=== PATIENT | male | born 1965 | race Caucasian/White ===

== ENCOUNTER 2016-05-31 10:33 | Emergency (ER) | payer OTHER ==
[~2016-05-31] VITALS: Ht 190.5 cm; Wt 98.4 kg
[~2016-05-31 10:33] MED LIST: ACYCLOVIR400 MG ORAL; ALBUTEROL SULF8.5 GM INH; AZITHROMYCIN250 MG ORAL; BACTRIM DS TAB1 EAC1 ORAL; CHERATUSSIN AC118 ML PO; IBUPROFEN600 MG ORAL; ISENTRESS400 MG ORAL; LEVAQUIN500 MG ORAL; PREDNISONE20 MG ORAL; TRUVADA 200 MG1 EAC1 ORAL; ZITHROMAX250 MG ORAL
[2016-05-31] MEDS ORDERED: BENADRYL25 MG ORAL (11:56)
[2016-05-31] MEDS ORDERED: TRIAMCINOLONE A15 G1 TP (11:56)
[2016-05-31] MEDS ORDERED: PREDNISONE20 MG ORAL (11:56)
[2016-05-31] MEDS ORDERED: Solu-MEDROL 125mg Inj IM ONE (12:00)
--- NOTE | 2016-05-31 12:05 | Emergency Room Report ---
History of Present Illness General Chief Complaint: Upper Respiratory Illness Source: Patient Present Illness HPI Patient is a 51-year-old male presenting with 3 days of nasal congestion, dry cough, and total body rash. The patient denies using any new detergents, soaps , clothing, or consuming any new foods. The patient states that the rash is itchy it does not hurt. The patient admits to using methamphetamine 4 days ago. The patient denies other symptoms including fever, chills, headache, neck pain or stiffness, shortness of breath, chest pain, numbness or tingling, swelling Allergies: Coded Allergies: Sesame Seed (Unverified Allergy, Unknown, 09/22/14) Patient History Past Medical History: see triage record Pertinent Family History: none Social History: Reports: drug use - methamphetamine Reviewed Nursing Documentation: PMH: Agreed, PSxH: Agreed Nursing Documentation-PMH Past Medical History: No History, Except For Hx Pacemaker: No - ANEMIA Hx Gastrointestinal Problems: Yes - hernia Review of Systems All Other Systems: negative except mentioned in HPI Physical Exam Vital Signs Date Time Temp Pulse Resp B/P Pulse Ox O2 Delivery O2 Flow Rate FiO2 05/31/16 11:19 98.2 84 18 125/87 98 Room Air Sp02 EP Interpretation: reviewed, normal General Appearance: no apparent distress, alert, GCS 15, non-toxic Head: normocephalic, atraumatic Eyes: bilateral eye PERRL, bilateral eye normal inspection ENT: hearing grossly normal, normal pharynx, no angioedema, normal voice, other - No tonsils Neck: full range of motion, supple/symm/no masses Respiratory: chest non-tender, lungs clear, normal breath sounds, speaking full sentences Cardiovascular #1: regular rate, rhythm, no edema Gastrointestinal: normal bowel sounds, non tender, soft, non-distended, no guarding, no rebound Rectal: deferred Genitourinary: normal inspection, no CVA tenderness Musculoskeletal: back normal, gait/station normal, normal range of motion, non- tender Neurologic: alert, oriented x3, responsive, motor strength/tone normal, sensory intact, speech normal Psychiatric: judgement/insight normal, memory normal, mood/affect normal, no suicidal/homicidal ideation Skin: normal turgor, rash - diffuse erythema with excoriations Lymphatic: no adenopathy Medical Decision Making PA Attestation Dr. Oneil is my supervising physician. Patient management was discussed with my supervising physician Diagnostic Impression: Primary Impression: Atopic dermatitis ER Course The patient is a 51-year-old male presenting with URI symptoms and full body rash Ddx considered include but not limited to insect bite, contact dermatitis, eczema, cellulitis Differential diagnosis include but not limited to pharyngitis, sinusitis, AOM, bronchitis, PNA PE: vitals WNL. No apparent distress. No TTP over maxillary or frontal sinuses. Lungs CTA bilat. No wheezing. No accessory muscle use. Heart: RRR, no abnormal heart sounds Ears: external auditory canal clear. Non erythematous. Bilat TM intact. Cone of light present bilat. No bulging of TM. No serous fluid seen. + nasal D/C no anterior cervical lymphad No exudate. Uvula midline.Oropharynx non erythematous Skin: warm and dry. Diffuse erythema with excoriations. Pt is given a shot of methylprednisone Pt will be DC'ed home with a prescription for prednisone, triaconazole, and benadryl. ER precautions given. Pt told he may need allergy testing and to stop using drugs. Last Vital Signs Date Time Temp Pulse Resp B/P Pulse Ox O2 Delivery O2 Flow Rate FiO2 05/31/16 11:19 98.2 84 18 125/87 98 Room Air Status: improved Disposition: HOME, SELF-CARE Condition: Improved Scripts Triamcinolone Acetonide (TRIAMCINOLONE ACETONIDE) 15 Gm Cream..g. 1 APPLIC TP TID, #15 GM Prov: TERZIAN,RAOUL P.A. 05/31/16 Prednisone* (PREDNISONE*) 20 Mg Tablet 20 MG ORAL DAILY, #5 TAB 0 Refills Prov: TERZIAN,RAOUL P.A. 05/31/16 Diphenhydramine Hcl* (BENADRYL*) 25 Mg Capsule 25 MG ORAL Q6H Y for Itching, #20 CAP Prov: TERZIAN,RAOUL P.A. 05/31/16 Patient Instructions: Pruritus Additional Instructions: I discussed my findings with the patient. All questions and concerns have been answered. Treatment and medication compliance have been addressed. I advised the patient that they need to follow up with PMD in 3-5 days. Return to ED if symptoms worsen, new symptoms arise, or if needed for any reason. Patient verbalized understanding of discharge instructions. RAOUL LEHMAN May 31, 2016 12:05
[2016-05-31 12:07] VITALS: BP 125/87
[2016-05-31 12:08] VITALS: BP 125/87
== END 2016-05-31 12:08 | disposition home or self-care (01) ==
LOC: EMR 12:00
DX: L20.9 Atopic dermatitis, unspecified (principal); F15.10 Other stimulant abuse, uncomplicated
CPT/HCPCS: 96372; 99284; J2930

== ENCOUNTER 2016-06-22 20:45 | Emergency (ER) | payer MEDICAID, OTHER ==
[~2016-06-22] VITALS: Ht 190.5 cm; Wt 98.4 kg
[~2016-06-22 20:45] MED LIST changes: +BENADRYL25 MG ORAL; +TRIAMCINOLONE A15 G1 TP
[2016-06-22 21:03] VITALS: BP 123/78
[2016-06-22] MEDS ORDERED: PredniSONE 20mg tab ORAL ONE (21:15)
--- NOTE | 2016-06-22 21:18 | Emergency Room Report ---
History of Present Illness General Chief Complaint: Skin Rash/Abscess Source: Patient Present Illness HPI This is a 51-year-old male with a history of HIV. He is on antiretroviral medication ready. Viral load is undetectable. He also has a history of eczema. He presents with a rash is diffuse in nature. He was here about 3 weeks ago and was treated. He said it almost completely resolved when the story was off he came back. Itchy. History of methamphetamine use a month ago. Denies any fever chills denies any nausea vomiting. No other complaint. Allergies: Coded Allergies: Sesame Seed (Unverified Allergy, Unknown, 09/22/14) Patient History Past Medical History: see triage record, old chart reviewed Past Surgical History: none Pertinent Family History: none Social History: Denies: smoking Immunizations: other Reviewed Nursing Documentation: PMH: Agreed, PSxH: Agreed Nursing Documentation-PMH Hx Pacemaker: No - ANEMIA Hx Gastrointestinal Problems: Yes - hernia Review of Systems Eye: Denies: blurred vision, eye pain ENT: Denies: ear pain, nose congestion, throat swelling Respiratory: Denies: cough, shortness of breath Cardiovascular: Denies: chest pain, palpitations Gastrointestinal: Denies: abdominal pain, diarrhea, nausea, vomiting Musculoskeletal: Denies: back pain, joint pain Skin: Reports: rash Neurological: Denies: headache, numbness Endocrine: Denies: increased thirst, increased urine Hematologic/Lymphatic: Denies: easy bruising All Other Systems: negative except mentioned in HPI Physical Exam Vital Signs Date Time Temp Pulse Resp B/P Pulse Ox O2 Delivery O2 Flow Rate FiO2 06/22/16 20:55 98.2 77 16 123/78 96 Room Air vitals normal Sp02 EP Interpretation: reviewed, normal General Appearance: well appearing, no apparent distress, alert Head: normocephalic, atraumatic Eyes: bilateral eye EOMI, bilateral eye PERRL ENT: hearing grossly normal, normal pharynx Neck: full range of motion, supple, no meningismus Respiratory: chest non-tender, lungs clear, normal breath sounds Cardiovascular #1: regular rate, rhythm, no murmur Gastrointestinal: normal bowel sounds, non tender, no mass, no organomegaly, no bruit, non-distended Musculoskeletal: back normal, gait/station normal, normal range of motion Neurologic: alert, oriented x3 Psychiatric: mood/affect normal Skin: warm/dry, rash - Diffuse atopic rash mostly in his torso. Medical Decision Making Diagnostic Impression: Primary Impression: Atopic dermatitis Qualified Codes: L20.9 - Atopic dermatitis, unspecified Additional Impression: History of amphetamine abuse ER Course Patient presents with exacerbation of his atopic dermatitis. No evidence of scabies. No evidence of never causing fasciitis. May have secondary to infection. We'll going put on antibiotics also. We'll discharge home. He said that no drug use for the last 2 months. Last Vital Signs Date Time Temp Pulse Resp B/P Pulse Ox O2 Delivery O2 Flow Rate FiO2 06/22/16 21:03 98.2 75 16 123/78 96 Room Air Status: improved Disposition: HOME, SELF-CARE Condition: Stable Scripts Prednisone* (PREDNISONE*) 20 Mg Tablet 20 MG ORAL DAILY, #14 TAB Prov: CHARLENE SMALL M.D. 06/22/16 Trimethoprim/Sulfamethoxazole 160/800* (BACTRIM DS TABLET*) 1 Each Tablet 1 TAB ORAL Q12H, #14 TAB 0 Refills Prov: CHARLENE SMALL M.D. 06/22/16 Additional Instructions: Followup with your DrMandy in 7 days. Return if symptom worsen. CHARLENE SMALL M.D. Jun 22, 2016 21:18
[2016-06-22] MEDS ORDERED: PREDNISONE20 MG ORAL (21:27)
[2016-06-22] MEDS ORDERED: BACTRIM DS TAB1 EAC1 ORAL (21:27)
[2016-06-22 21:34] VITALS: BP 123/78
== END 2016-06-22 21:45 | disposition home or self-care (01) ==
LOC: EMR 21:35
DX: L20.9 Atopic dermatitis, unspecified (principal); F15.10 Other stimulant abuse, uncomplicated
CPT/HCPCS: 99284

== ENCOUNTER 2016-06-24 21:52 | Emergency (ER) | payer OTHER ==
[~2016-06-24] VITALS: Ht 183.5 cm; Wt 74.8 kg
[2016-06-24] MEDS ORDERED: KENALOG 0.1% CR15 GM TOPIC (22:22)
--- NOTE | 2016-06-24 22:22 | Emergency Room Report ---
History of Present Illness General Chief Complaint: Skin Rash/Abscess Source: Patient Present Illness HPI Is a 51-year-old male with history of HIV. Also has a venous history of methamphetamine abuse. He presents with chief when a rash throughout his torso. I saw him 2 days ago and prescribe prednisone. Still itchy. Not better. Denies any trauma. Similar symptom in the past. No other complaint. Allergies: Coded Allergies: Sesame Seed (Unverified Allergy, Unknown, 09/22/14) Patient History Past Medical History: see triage record, old chart reviewed Past Surgical History: other Pertinent Family History: none Social History: Denies: smoking Immunizations: other Reviewed Nursing Documentation: PMH: Agreed, PSxH: Agreed Nursing Documentation-PMH Past Medical History: No History, Except For Hx Pacemaker: No - ANEMIA Hx Gastrointestinal Problems: Yes - hernia Review of Systems Eye: Denies: blurred vision, eye pain ENT: Denies: ear pain, nose congestion, throat swelling Respiratory: Denies: cough, shortness of breath Cardiovascular: Denies: chest pain, palpitations Gastrointestinal: Denies: abdominal pain, diarrhea, nausea, vomiting Musculoskeletal: Denies: back pain, joint pain Skin: Reports: rash Neurological: Denies: headache, numbness Endocrine: Denies: increased thirst, increased urine Hematologic/Lymphatic: Denies: easy bruising All Other Systems: negative except mentioned in HPI Physical Exam Vital Signs Date Time Temp Pulse Resp B/P Pulse Ox O2 Delivery O2 Flow Rate FiO2 06/24/16 22:04 97.5 79 15 125/68 98 Room Air vitals normal Sp02 EP Interpretation: reviewed, normal General Appearance: well appearing, no apparent distress, alert Head: normocephalic, atraumatic Eyes: bilateral eye EOMI, bilateral eye PERRL ENT: hearing grossly normal, normal pharynx Neck: full range of motion, supple, no meningismus Respiratory: chest non-tender, lungs clear, normal breath sounds Cardiovascular #1: regular rate, rhythm, no murmur Gastrointestinal: normal bowel sounds, non tender, no mass, no organomegaly, no bruit, non-distended Musculoskeletal: back normal, gait/station normal, normal range of motion Neurologic: alert, oriented x3 Psychiatric: mood/affect normal Skin: warm/dry, rash - diffuse rash. dry and reticular Medical Decision Making Diagnostic Impression: Primary Impression: Atopic dermatitis Qualified Codes: L20.9 - Atopic dermatitis, unspecified ER Course Patient with a rash. Unknown etiology. No evidence of meningitis with no evidence of necrotizing fasciitis. We'll discharge home. If not better will need wind farm operations manager consult. Last Vital Signs Date Time Temp Pulse Resp B/P Pulse Ox O2 Delivery O2 Flow Rate FiO2 06/24/16 22:04 97.5 79 15 125/68 98 Room Air Status: improved Disposition: HOME, SELF-CARE Condition: Stable Scripts Triamcinolone Acet (Triamcinolone Acetonide) 80 Gm Cream..g. 1 GM TOPIC BID, #80 GM Prov: CHARLENE SMALL M.D. 06/24/16 Patient Instructions: Rash Additional Instructions: Followup with your Dr. in 7 days. You may need a referral to see a wind farm operations manager. Return if symptom worsen. CHARLENE SMALL M.D. Jun 24, 2016 22:22
[2016-06-24] MEDS ORDERED: Dexamethasone 4mg/ml vial IM ONE (22:30)
[2016-06-24 22:38] VITALS: BP 119/70
[2016-06-24 22:42] VITALS: BP 119/70
== END 2016-06-24 22:42 | disposition home or self-care (01) ==
LOC: EMR 22:11
DX: L20.9 Atopic dermatitis, unspecified (principal); R21 Rash and other nonspecific skin eruption; F15.10 Other stimulant abuse, uncomplicated
CPT/HCPCS: 96372; 99283; J1100

== ENCOUNTER 2016-07-13 19:22 | Emergency (ER) | payer OTHER ==
[~2016-07-13] VITALS: Ht 190.5 cm; Wt 99.8 kg
[~2016-07-13 19:22] MED LIST changes: +KENALOG 0.1% CR15 GM TOPIC
[2016-07-13 19:38] VITALS: BP 115/76
--- NOTE | 2016-07-13 19:48 | Emergency Room Report ---
History of Present Illness General Chief Complaint: Flu Like Symptoms Source: Patient Present Illness HPI 51 Yo male presents to the ED c/o cough congestion body aches, and chills with nasal congestion and rhinorrhea x 3 days. hx of HIV, pt. 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 denies fevers, back pain, rash, abdominal pain, constipation or diarrhea. denies nausea or vomiting. pt. reports last viral load was zero and can not recall his CD4 count but states it was not low by any means. pt. states generalized fatigue, and body aches , denies specific joint pain. Denies Neck pain/stiffness, LAD, CP, Palpitations, LOC, AMS, dizziness, Changes in Vision, Sensation, paresthesias, or a sudden severe headache. Pt. states when he becomes sick he on occasion will receive steroid burst, reports very mild wheezing. states he does not have an inhaler. Pt also has a hx of eczema, and states he just ran out of his triamcinolone cream and needs a refill. Allergies: Coded Allergies: Sesame Seed (Unverified Allergy, Unknown, 07/13/16) Patient History Past Medical History: see triage record, HIV Past Surgical History: none Pertinent Family History: none Immunizations: UTD Reviewed Nursing Documentation: PMH: Agreed, PSxH: Agreed Nursing Documentation-PMH Past Medical History: No History, Except For Hx Pacemaker: No - ANEMIA Hx Gastrointestinal Problems: Yes - hernia Review of Systems All Other Systems: negative except mentioned in HPI Physical Exam Vital Signs Date Time Temp Pulse Resp B/P Pulse Ox O2 Delivery O2 Flow Rate FiO2 07/13/16 19:32 97.9 76 16 115/76 99 Room Air Sp02 EP Interpretation: reviewed, normal General Appearance: no apparent distress, alert, GCS 15, non-toxic Head: normocephalic, atraumatic Eyes: bilateral eye PERRL, bilateral eye normal inspection ENT: hearing grossly normal, normal pharynx, no angioedema, normal voice, TMs + canals normal, uvula midline, nasal congestion - clear rhinorrhea Neck: full range of motion, no meningismus, no bony tend, supple/symm/no masses Respiratory: chest non-tender, lungs clear, normal breath sounds, no respiratory distress, no accessory muscle use, speaking full sentences, wheezing - scant/faint expiratory wheeze at the very end of inspiration bilaterally, no rales or ronchi Cardiovascular #1: regular rate, rhythm, no edema, normal capillary refill Gastrointestinal: normal bowel sounds, non tender, soft, no guarding, no rebound Rectal: deferred Musculoskeletal: back normal, gait/station normal, normal range of motion, non- tender Neurologic: alert, oriented x3, responsive, motor strength/tone normal, sensory intact, speech normal Psychiatric: judgement/insight normal, memory normal, mood/affect normal Skin: normal color, warm/dry, well hydrated, rash - dry eczematous rash to the dorsum of hands, and neck. Lymphatic: no adenopathy Medical Decision Making PA Attestation Dr. Brooks is my supervising Physician whom patient management has been discussed with. Diagnostic Impression: Primary Impression: Acute viral syndrome Additional Impression: Upper respiratory infection Qualified Codes: J06.9 - Acute upper respiratory infection, unspecified; B97.89 - Other viral agents as the cause of diseases classified elsewhere ER Course Pt. presents to the ED c/o cough congestion bodyaches, fevers, chills and headaches x 3 days. hx of HIV, pt. 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 -pt also requests refill of his triamcinolone cream for his eczema. Ddx considered but are not limited to URI, pneumonia, PE, strep pharyngitis, meningitis. Vital signs: Pt. is afebrile, the remaining VS are WNL H&PE are most consistent with URI- no meningeal signs, oropharynx is not involved, no evidence of bacterial infection at this time., and medication refill. ORDERS: none required at this time, the diagnosis is clinical ED INTERVENTIONS: None required at this time. DISCHARGE: At this time pt. is stable for d/c to home. Will provide printed patient care instructions, and any necessary prescriptions. Care plan and follow up instructions have been discussed with the patient prior to discharge. Last Vital Signs Date Time Temp Pulse Resp B/P Pulse Ox O2 Delivery O2 Flow Rate FiO2 07/13/16 19:38 76 16 Room Air 07/13/16 19:38 97.9 115/76 99 Disposition: HOME, SELF-CARE Condition: Stable Scripts Triamcinolone Acet (Triamcinolone Acetonide) 15 Gm Cream..g. 1 APPLIC TP BID, #15 GM Prov: So Morales 07/13/16 Albuterol Sulfate* (ALBUTEROL SULFATE MDI*) 8.5 Gm Hfa.aer.ad 2 PUFF INH Q3H, #1 INH 0 Refills Prov: So Morales 07/13/16 Patient Instructions: Upper Respiratory Infection, Adult Additional Instructions: Take medications as directed. Follow up with PCP in 3-5 days Return sooner to ED if new symptoms occur, or current symptoms become worse. - Please note that this Emergency Department Report was dictated using [employer] technology software, occasionally this can lead to erroneous entry secondary to interpretation by the dictation equipment. So Morales Jul 13, 2016 19:48
[2016-07-13] MEDS ORDERED: ZITHROMAX250 MG ORAL (19:50)
[2016-07-13] MEDS ORDERED: KENALOG 0.5% CR15 GM TP (19:50)
[2016-07-13] MEDS ORDERED: ALBUTEROL SULF8.5 GM INH (19:50)
[2016-07-13 20:11] VITALS: BP 115/76
== END 2016-07-13 20:00 | disposition home or self-care (01) ==
LOC: EMR 19:50
DX: B34.9 Viral infection, unspecified (principal); J06.9 Acute upper respiratory infection, unspecified; Z91.018 Allergy to other foods; D64.9 Anemia, unspecified; B97.89 Other viral agents as the cause of diseases classified elsewhere; R51 Headache
CPT/HCPCS: 99284

== ENCOUNTER 2016-07-23 07:18 | Emergency (ER) | payer OTHER ==
[~2016-07-23] VITALS: Ht 190.5 cm; Wt 99.3 kg
[~2016-07-23 07:18] MED LIST changes: +KENALOG 0.5% CR15 GM TP
[2016-07-23] MEDS ORDERED: AMBIEN10 M1 ORAL (07:28)
[2016-07-23] MEDS ORDERED: Tetracaine 0.5% Opth Soln RIGHT EYE ONE (08:00)
[2016-07-23] MEDS ORDERED: Tetracaine 0.5% Opth Soln LEFT EYE ONE (08:00)
[2016-07-23] MEDS ORDERED: Fluorescein Strips BOTH EYES ONE (08:00)
[2016-07-23] MEDS ORDERED: OCUFLOX5 ML OP (08:21)
[2016-07-23] MEDS ORDERED: KEFLEX500 MG ORAL (08:21)
[2016-07-23 08:27] VITALS: BP 123/78
--- NOTE | 2016-07-23 08:28 | Emergency Room Report ---
History of Present Illness General Chief Complaint: Eye Problems Source: Patient Present Illness HPI 51YOM with left eye "irritation" and eyelid swelling for 2 days. Doesnt wear contacts. ?something irritated eye at work. Had botox injected to left side of face 2-3 days ago. Denies fever/chills. Denies purulent drainage from eye, fever/chills. No pain with extra ocular movement. Denies blurry, change in vision. Allergies: Coded Allergies: Sesame Seed (Unverified Allergy, Unknown, 07/13/16) Patient History Past Medical History: HIV Past Surgical History: none Pertinent Family History: none Social History: Denies: alcohol use, drug use, smoking Immunizations: UTD Reviewed Nursing Documentation: PMH: Agreed, PSxH: Agreed Nursing Documentation-PMH Hx Pacemaker: No - ANEMIA Hx Gastrointestinal Problems: Yes - hernia Review of Systems All Other Systems: negative except mentioned in HPI Physical Exam Vital Signs Date Time Temp Pulse Resp B/P Pulse Ox O2 Delivery O2 Flow Rate FiO2 07/23/16 07:25 98.1 77 16 120/77 95 Room Air Sp02 EP Interpretation: reviewed, normal General Appearance: normal inspection, well appearing, no apparent distress, alert, GCS 15, non-toxic Head: normocephalic, atraumatic, other - Left radu-orbital area with 1+ non pitting edema, mild erythema, swelling Eyes: bilateral eye PERRL, bilateral eye other - No corneal abrasion on i- flour stain. No FB on eversion of eyelids. No purulent drainage from eye. Diffuse upper/lower eyelid swelling. 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 Well appearing Rx Keflex, optham ocuflex PMD followup DC home Last Vital Signs Date Time Temp Pulse Resp B/P Pulse Ox O2 Delivery O2 Flow Rate FiO2 07/23/16 07:25 98.1 77 16 120/77 95 Room Air Status: improved Disposition: HOME, SELF-CARE Condition: Improved Scripts Cephalexin* (KEFLEX*) 500 Mg Capsule 500 MG ORAL Q6H for 7 Days, #28 CAP 0 Refills Prov: NEYDA ZAMORANO M.D. 07/23/16 Ofloxacin (OCUFLOX) 5 Ml Drops 2 DROP OP TID for 7 Days, #30 ML Prov: NEYDA ZAMORANO M.D. 07/23/16 Patient Instructions: Preseptal Cellulitis, Adult Additional Instructions: - Take ALL oral antibiotics as prescribed until finished - Apply topical eye drops 3x a day for 7 days - Apply CLEAN HOT towel to eyelids up to 3x a day - Follow up with primary care doctor in 2-3 days NEYDA ZAMORANO M.D. Jul 23, 2016 08:28
== END 2016-07-23 08:30 | disposition home or self-care (01) ==
LOC: EMR 07:58
DX: H57.8 Other specified disorders of eye and adnexa (principal); B20 Human immunodeficiency virus [HIV] disease; Z87.19 Personal history of other diseases of the digestive system
CPT/HCPCS: 99284

== ENCOUNTER 2016-11-19 21:11 | Emergency (ER) | payer OTHER ==
[~2016-11-19] VITALS: Ht 190.5 cm; Wt 97.5 kg
[~2016-11-19 21:11] MED LIST changes: +AMBIEN10 M1 ORAL; +KEFLEX500 MG ORAL; +OCUFLOX5 ML OP
[2016-11-19 21:38] VITALS: BP 147/92
[2016-11-19] MEDS ORDERED: DuoNeb 0.5-3(2.5)mg/3ml neb HHN ONE (21:45)
--- NOTE | 2016-11-19 21:48 | Emergency Room Report ---
History of Present Illness General Chief Complaint: General Complaint Source: Patient Present Illness HPI Patient is a 51-year-old male who presented after increased cough as well as generalized body rash. The patient having gradual onset of symptoms. Patient reports having similar symptoms in the past. The patient previously been intermittently on steroids after episodes of difficulty breathing. Patient reported having increased left-sided ankle pain. Patient states that previous fractures to that bone. He denies any recent fever. He reported having gradually worsening itchy skin rash. Allergies: Coded Allergies: Sesame Seed (Unverified Allergy, Unknown, 07/13/16) Patient History Past Medical History: see triage record Reviewed Nursing Documentation: PMH: Agreed, PSxH: Agreed Nursing Documentation-PMH Past Medical History: No History, Except For Hx Pacemaker: No - ANEMIA Hx Gastrointestinal Problems: Yes - hernia Review of Systems All Other Systems: negative except mentioned in HPI Physical Exam Vital Signs Date Time Temp Pulse Resp B/P (MAP) Pulse Ox O2 Delivery O2 Flow Rate FiO2 11/19/16 21:31 97.9 83 16 147/92 100 Room Air Sp02 EP Interpretation: reviewed, normal General Appearance: normal inspection, well appearing, no apparent distress, alert, GCS 15 Head: atraumatic ENT: hearing grossly normal, normal voice, other - slight uvular swelling without erythema Neck: normal inspection, full range of motion, supple, no bony tend Respiratory: normal inspection, lungs clear, normal breath sounds, no respiratory distress, no retraction, no wheezing Cardiovascular #1: regular rate, rhythm, no edema Gastrointestinal: normal inspection, normal bowel sounds, non tender, soft, no guarding, no hernia Genitourinary: no CVA tenderness Musculoskeletal: normal inspection, back normal, normal range of motion Neurologic: normal inspection, alert, oriented x3, responsive, 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 Differential diagnosis included but was not limited to bronchitis, pneumonia, pulmonary embolism, pericarditis, asthma, foreign body. The patient initially appears to have some rash consistent with allergic dermatitis. This appears to be mild. Patient was given a breathing treatment. Patient was noted to have improvement in symptoms. Patient was given a prescription for Benadryl as well as for prednisone. X-ray imaging of the left ankle 3 views interpreted by me showed degenerative changes without any malalignment there is a questionable avulsion to the medial aspect of the distal fibula the patient was placed in an Maury wrap and given crutches. He is advised to followup with his primary care physician for reexamination. Last Vital Signs Date Time Temp Pulse Resp B/P (MAP) Pulse Ox O2 Delivery O2 Flow Rate FiO2 11/19/16 21:31 97.9 83 16 147/92 100 Room Air Status: improved Disposition: HOME, SELF-CARE Condition: Stable Scripts Ibuprofen* (MOTRIN*) 600 Mg Tablet 600 MG ORAL Q8H Y for For Pain, #30 TAB 0 Refills Prov: Taras Brooks 11/19/16 Prednisone* (PREDNISONE*) 20 Mg Tablet 40 MG ORAL DAILY, #10 TAB Prov: Taras Brooks 11/19/16 Albuterol Sulfate* (ALBUTEROL SULFATE MDI*) 8.5 Gm Hfa.aer.ad 2 PUFF INH Q3H, #1 INH 0 Refills Prov: Taras Brooks 11/19/16 Diphenhydramine Hcl* (BENADRYL*) 25 Mg Capsule 25 MG ORAL Q6H Y for Itching, #20 CAP Prov: Taras Brooks 11/19/16 Taras Brooks Nov 19, 2016 21:48
[2016-11-19] MEDS ORDERED: BENADRYL25 MG ORAL (22:09)
[2016-11-19] MEDS ORDERED: PREDNISONE20 MG ORAL (22:09)
[2016-11-19] MEDS ORDERED: ALBUTEROL SULF8.5 GM INH (22:09)
[2016-11-19] MEDS ORDERED: IBUPROFEN600 MG ORAL (22:14)
[2016-11-19 22:30] VITALS: BP 147/92
--- NOTE | 2016-11-20 09:45 | Diagnostic Imaging Report ---
Indication: left ankle pain Comparison: None Findings: 3 views of the left ankle obtained. No acute fracture, malalignment, periostitis, or osteochondral defects are identified. Soft tissues are unremarkable. Impression: No acute findings
== END 2016-11-19 22:30 | disposition home or self-care (01) ==
LOC: EMR 21:45
DX: L20.9 Atopic dermatitis, unspecified (principal); J40 Bronchitis, not specified as acute or chronic; S82.402D Unspecified fracture of shaft of left fibula, subsequent encounter for closed fracture with routine healing; X58.XXXD Exposure to other specified factors, subsequent encounter
CPT/HCPCS: 29530; 94640; 94664; 99284; J7620

== ENCOUNTER 2016-12-16 21:23 | Emergency (ER) | payer OTHER ==
[~2016-12-16] VITALS: Ht 190.5 cm; Wt 102.1 kg
[2016-12-16 21:50] VITALS: BP 129/86
--- NOTE | 2016-12-16 22:27 | Emergency Room Report ---
History of Present Illness General Chief Complaint: Pain Source: Patient Present Illness HPI This is a 51-year-old male with a history of HIV. He also has history of hernia. He presents with increasing pain to the in her hernia area. Also increasing constipation. Pain is 8/10. Worse in the last week. He said swelling is getting worse. No other complaint. No nausea no vomiting. No diarrhea. Allergies: Coded Allergies: Sesame Seed (Unverified Allergy, Unknown, 07/13/16) Patient History Past Medical History: see triage record, old chart reviewed, HIV Past Surgical History: other Pertinent Family History: none Social History: Reports: drug use Immunizations: other Reviewed Nursing Documentation: PMH: Agreed, PSxH: Agreed Nursing Documentation-PMH Past Medical History: No History, Except For Hx Pacemaker: No - ANEMIA Hx Gastrointestinal Problems: No - Inguinal hernia Review of Systems Eye: Denies: eye pain, blurred vision ENT: Denies: ear pain, nose congestion, throat swelling Respiratory: Denies: cough, shortness of breath Cardiovascular: Denies: chest pain, palpitations Gastrointestinal: Reports: abdominal pain, Denies: diarrhea, nausea, vomiting Musculoskeletal: Denies: back pain, joint pain Skin: Denies: rash Neurological: Denies: headache, numbness Endocrine: Denies: increased thirst, increased urine Hematologic/Lymphatic: Denies: easy bruising All Other Systems: negative except mentioned in HPI Physical Exam Vital Signs Date Time Temp Pulse Resp B/P (MAP) Pulse Ox O2 Delivery O2 Flow Rate FiO2 12/16/16 21:41 97.5 73 17 129/86 97 Room Air vitals normal Sp02 EP Interpretation: reviewed, normal General Appearance: well appearing, no apparent distress, alert Head: normocephalic, atraumatic Eyes: bilateral eye PERRL, bilateral eye EOMI ENT: hearing grossly normal, normal pharynx Neck: full range of motion, supple, no meningismus Respiratory: chest non-tender, lungs clear, normal breath sounds Cardiovascular #1: regular rate, rhythm, no murmur Gastrointestinal: normal bowel sounds, non tender, no mass, no organomegaly, no bruit, non-distended, other - Left in her hernia measuring about 2-3 cm. easily reducible. Musculoskeletal: back normal, gait/station normal, normal range of motion Psychiatric: mood/affect normal Skin: warm/dry Procedures Additional Procedure Procedure Narrative Procedure: Reduction of hernia Indication: Inguinal hernia pain Description: With gentle pressure I was able to reduce the hernia without any difficulty. Patient tolerated procedure without a problem. Medical Decision Making Diagnostic Impression: Primary Impression: Inguinal hernia of right side without obstruction or gangrene ER Course Patient with inguinal hernia pain. No obstruction. No incarceration. We'll discharge home. Last Vital Signs Date Time Temp Pulse Resp B/P (MAP) Pulse Ox O2 Delivery O2 Flow Rate FiO2 12/16/16 21:50 97.5 17 129/86 97 Room Air 12/16/16 21:41 73 Status: improved Disposition: HOME, SELF-CARE Condition: Stable Referrals: [facility] (PCP) Additional Instructions: Followup with your Dr. in 7 days. Return if symptom worsen. CHARLENE SMALL M.D. Dec 16, 2016 22:27
[2016-12-16 22:30] VITALS: BP 129/86
== END 2016-12-16 22:32 | disposition home or self-care (01) ==
LOC: EMR 22:10
DX: K40.90 Unilateral inguinal hernia, without obstruction or gangrene, not specified as recurrent (principal)
CPT/HCPCS: 99283

== ENCOUNTER 2017-01-08 12:56 | Emergency (ER) | payer OTHER ==
[~2017-01-08] VITALS: Ht 190.5 cm; Wt 97.5 kg
[2017-01-08 13:30] VITALS: BP 121/79
[2017-01-08] MEDS ORDERED: CEPHALEXIN500 MG ORAL (13:34)
[2017-01-08] MEDS ORDERED: NORCO 5-325 TA1 EACH ORAL (13:34)
[2017-01-08] MEDS ORDERED: BACTRIM-DS1 EA ORAL (13:34)
--- NOTE | 2017-01-08 13:35 | Emergency Room Report ---
History of Present Illness General Chief Complaint: Skin Rash/Abscess Source: Patient Present Illness HPI Patient is a 51-year-old male with a history of HIV who presents today with complaints of multiple abscesses. He states the abscesses began about 5 days ago and have been worsening since that time. He states that it is currently 7- 10 in severity and has not been taking medication for it. He denies any fever, chills, IV drug use or associated symptoms. Patient states he is unsure of his viral load. Allergies: Coded Allergies: Sesame Seed (Unverified Allergy, Unknown, 07/13/16) Patient History Reviewed Nursing Documentation: PMH: Agreed, PSxH: Agreed Nursing Documentation-PMH Past Medical History: No History, Except For Hx Pacemaker: No - ANEMIA Hx Gastrointestinal Problems: No - Inguinal hernia Review of Systems Skin: Reports: other - abscess Physical Exam Vital Signs Date Time Temp Pulse Resp B/P (MAP) Pulse Ox O2 Delivery O2 Flow Rate FiO2 01/08/17 13:18 98.1 72 20 121/79 99 Room Air Sp02 EP Interpretation: reviewed, normal General Appearance: no apparent distress, alert, GCS 15, non-toxic Head: normocephalic, atraumatic Eyes: bilateral eye normal inspection, bilateral eye PERRL ENT: hearing grossly normal, normal pharynx, no angioedema, normal voice Neck: full range of motion, supple/symm/no masses Respiratory: chest non-tender, lungs clear, normal breath sounds, speaking full sentences Cardiovascular #1: regular rate, rhythm, no edema Cardiovascular #2: 2+ carotid (R), 2+ carotid (L), 2+ radial (R), 2+ radial (L) , 2+ dorsalis pedis (R), 2+ dorsalis pedis (L) Gastrointestinal: normal bowel sounds, non tender, soft, non-distended, no guarding, no rebound Rectal: deferred Genitourinary: normal inspection, no CVA tenderness Musculoskeletal: back normal, gait/station normal, normal range of motion, non- tender, calf tenderness Neurologic: alert, oriented x3, responsive, motor strength/tone normal, sensory intact, speech normal Psychiatric: judgement/insight normal, memory normal, mood/affect normal, no suicidal/homicidal ideation Reflexes: 3+ bicep (R), 3+ bicep (L), 3+ tricep (R), 3+ tricep (L), 3+ knee (R) , 3+ knee (L) Skin: normal color, no rash, warm/dry, well hydrated, other - 1cm area of induration to left forearm, right axila and right buttocks. Scant overlying erythema. No drainable abscess present Lymphatic: no adenopathy Medical Decision Making PA Attestation Supervising physician Dr. mares Diagnostic Impression: Primary Impression: Abscess of right forearm Additional Impressions: Abscess of left axilla Abscess of right buttock History of HIV infection ER Course Wishes to have multiple abscesses, no drainable abscess is present. Patient is instructed to use warm compresses and is discharged home with Bactrim and Keflex. Instructed to follow up with PCP in 2 days for reevaluation. Patient understands and is agreeable with plan. Last Vital Signs Date Time Temp Pulse Resp B/P (MAP) Pulse Ox O2 Delivery O2 Flow Rate FiO2 01/08/17 13:18 98.1 72 20 121/79 99 Room Air Status: improved Disposition: HOME, SELF-CARE Condition: Stable Scripts Hydrocodone Bit/Acetaminophen 5-325* (NORCO 5-325*) 1 Each Tablet 1 TAB ORAL Q4H Y for For Pain, #20 TAB 0 Refills Prov: Sarah Mtz P.A. 01/08/17 Cephalexin* (KEFLEX*) 500 Mg Capsule 500 MG ORAL EVERY 6 HOURS for 10 Days, #40 CAP Prov: Sarah Mtz P.A. 01/08/17 Trimethoprim/Sulfamethoxazole (Bactrim Ds Tablet) 1 Each Tablet 1 TAB ORAL TWICE A DAY for 10 Days, #20 TAB Prov: Sarah Mtz P.A. 01/08/17 Patient Instructions: Abscess Sarah Mtz P.AMandy Jan 08, 2017 13:35
[2017-01-08 13:40] VITALS: BP 121/79
[2017-02-17] MEDS ORDERED: KENALOG 0.5% CR15 GM APPLIC (20:48)
[2017-02-17] MEDS ORDERED: PREDNISONE20 MG ORAL (20:48)
== END 2017-01-08 13:41 | disposition home or self-care (01) ==
LOC: EMR 13:41
DX: L02.413 Cutaneous abscess of right upper limb (principal); L02.412 Cutaneous abscess of left axilla; L02.31 Cutaneous abscess of buttock; Z87.898 Personal history of other specified conditions
CPT/HCPCS: 99284

== ENCOUNTER 2017-02-03 19:45 | Emergency (ER) | payer OTHER ==
[~2017-02-03] VITALS: Ht 190.5 cm; Wt 101.6 kg
[~2017-02-03 19:45] MED LIST changes: +BACTRIM-DS1 EA ORAL; +CEPHALEXIN500 MG ORAL; +NORCO 5-325 TA1 EACH ORAL
[2017-02-03] MEDS ORDERED: Bacitracin Oint UD TOPIC ONE (20:15)
[2017-02-03] MEDS ORDERED: Lidocaine 1% 10mg/ml/Epi 0.005mg/ml 10ml vial INJ ONE ×2 (20:15→21:45)
[2017-02-03] MEDS ORDERED: Bactrim DS (160mg/800mg) tab ORAL ONE (20:15)
[2017-02-03] MEDS ORDERED: Cephalexin 500mg cap ORAL ONE (20:15)
[2017-02-03] MEDS ORDERED: Lidocaine 1% 10mg/ml/EPI 0.01mg/ml 50ml INJ ONE (20:36)
[2017-02-03] MEDS ORDERED: CEPHALEXIN500 MG ORAL (20:54)
[2017-02-03] MEDS ORDERED: IBUPROFEN600 MG ORAL (20:54)
[2017-02-03] MEDS ORDERED: BACTRIM DS TAB1 EAC1 ORAL (20:54)
[2017-02-03 21:32] VITALS: BP 117/78
[2017-02-03 21:35] VITALS: BP 117/78
--- NOTE | 2017-02-03 22:12 | Emergency Room Report ---
History of Present Illness General Chief Complaint: Skin Rash/Abscess Source: Patient Present Illness HPI The patient is a 51-year-old male presenting for possible skin infection. He noticed red mcnamara on his legs approximately one week prior. One of these lesions on the left lower leg then became more swollen and painful. Pain is an 8/10 dull ache and is worse with touch. No radiating pain. He denies any other symptoms including fever or chills Allergies: Coded Allergies: Sesame Seed (Unverified Allergy, Unknown, 07/13/16) Patient History Past Medical History: see triage record Pertinent Family History: none Reviewed Nursing Documentation: PMH: Agreed, PSxH: Agreed Nursing Documentation-PMH Hx Pacemaker: No - ANEMIA Hx Gastrointestinal Problems: No - Inguinal hernia Review of Systems All Other Systems: negative except mentioned in HPI Physical Exam Vital Signs Date Time Temp Pulse Resp B/P (MAP) Pulse Ox O2 Delivery O2 Flow Rate FiO2 02/03/17 19:57 98.2 83 18 117/78 96 Room Air Sp02 EP Interpretation: reviewed, normal General Appearance: no apparent distress, alert, GCS 15, non-toxic Head: normocephalic, atraumatic Eyes: bilateral eye normal inspection, bilateral eye PERRL ENT: hearing grossly normal, normal pharynx, no angioedema, normal voice Neck: full range of motion, supple/symm/no masses Musculoskeletal: back normal, gait/station normal, normal range of motion, non- tender, no calf tenderness Neurologic: alert, oriented x3, responsive, motor strength/tone normal, sensory intact, speech normal Psychiatric: judgement/insight normal, memory normal, mood/affect normal, no suicidal/homicidal ideation Skin: rash - L lower leg erythema, edema, fluctuance with central scab Procedures Incision and Drainage Incision and Drainage : Consent: Verbal Site: L lower leg Blade Size: 11 I & D Procedure: betadine prep, sterile drapes applied Wound Location: lower extremity Wound's Depth, Shape: superficial, linear Wound Length (cm): 1 Wound Explored: contaminated Irrigated w/ Saline (ccs): 50 Anesthesia: 1% Lidocaine, Lidocaine w/ Epi Volume Anesthetic (ccs): 3 Splint Applied?: No Sling Applied?: No Patient Tolerated: Well Complications: None Medical Decision Making PA Attestation Dr. Brooks is my supervising physician. Patient management was discussed with my supervising physician Diagnostic Impression: Primary Impression: Abscess ER Course The patient is a 51-year-old male presenting for possible skin infection. Differential diagnoses considered but not limited to: abscess, cellulitis, insect bite PE: Afebrile. NAD L lateral lower leg circular erythema, edema, fluctuance with central scab. Hot to the touch Betadine prep was used to clean the skin and surrounding area. One percent lidocaine without epinephrine was used to anesthetize the are of planned incision. A #11 blade was used to make an incision in the central area of fluctuance approximately 1/3 the size of the diameter of the abcess. Once the incision was made, purulent material was expressed with blood. Blunt dissection was then used to release loculations and expressed more purulent material. Once only blood appeard to be expressed from the incision, normal saline was used to irrigate the inside of the abscess. The wound was then cleaned and sterile dressing applied. The patient is AZ'ed home Prescription for Bactrim and Keflex. He will followup with his primary doctor. ER precautions given Last Vital Signs Date Time Temp Pulse Resp B/P (MAP) Pulse Ox O2 Delivery O2 Flow Rate FiO2 02/03/17 21:35 98.2 88 18 117/78 96 Room Air Status: improved Disposition: HOME, SELF-CARE Condition: Improved Scripts Cephalexin* (KEFLEX*) 500 Mg Capsule 500 MG ORAL EVERY 12 HOURS, #14 CAP 0 Refills Prov: RAOUL LEHMAN P.A. 02/03/17 Trimethoprim/Sulfamethoxazole 160/800* (BACTRIM DS TABLET*) 1 Each Tablet 1 TAB ORAL TWICE A DAY, #14 TAB Prov: TERZIANMARILYNNY P.A. 02/03/17 Ibuprofen* (MOTRIN*) 600 Mg Tablet 600 MG ORAL Q8H Y for For Pain, #30 TAB 0 Refills Prov: TERZIANRAOUL P.A. 02/03/17 Patient Instructions: Abscess Additional Instructions: I discussed my findings with the patient. All questions and concerns have been answered. Treatment and medication compliance have been addressed. I advised the patient that they need to follow up with PMD in 3-5 days. Return to ED if symptoms worsen, new symptoms arise such as fever or chills, or if needed for any reason. Patient verbalized understanding of discharge instructions. RAOUL LEHMANAMandy Feb 03, 2017 22:12
[2017-02-17] MEDS ORDERED: PREDNISONE20 MG ORAL (20:48)
[2017-02-17] MEDS ORDERED: KENALOG 0.5% CR15 GM APPLIC (20:48)
== END 2017-02-03 21:37 | disposition home or self-care (01) ==
LOC: EMR 20:11
DX: L02.416 Cutaneous abscess of left lower limb (principal)
CPT/HCPCS: 10060; 99284

== ENCOUNTER → 2017-02-17 | Emergency (ER) | payer OTHER ==
[~2017-02-17] VITALS: Ht 190.5 cm; Wt 99.8 kg
[~2017-02-17] MED LIST changes: +ATARAX25 MG ORAL; +CLINDAMYCIN HC300 MG ORAL; +KENALOG 0.025%15 GM APPLIC; +KENALOG 0.5% CR15 GM APPLIC; +NORCO 10-325 T1 EACH ORAL
[2017-02-17 20:48] VITALS: BP 148/82
[2017-02-17 21:19] VITALS: BP 142/76
--- NOTE | 2017-02-17 23:02 | Emergency Room Report ---
History of Present Illness General Chief Complaint: Skin Rash/Abscess Source: Patient Present Illness HPI The patient is a 51-year-old male presented after increased diffuse generalized rash. Patient reported having itchy rash to his trunk and extremities. The patient reported having similar rash the past. This had been responsive to prednisone. The patient stated that he had previously been taking Benadryl without any change. Rash been present for approximately one to 2 days. He denied any fever. Allergies: Coded Allergies: Sesame Seed (Unverified Allergy, Unknown, 07/13/16) Patient History Past Medical History: see triage record Reviewed Nursing Documentation: PMH: Agreed, PSxH: Agreed Nursing Documentation-PMH Hx Pacemaker: No - ANEMIA Hx Gastrointestinal Problems: No - Inguinal hernia Review of Systems All Other Systems: negative except mentioned in HPI Physical Exam Vital Signs Date Time Temp Pulse Resp B/P (MAP) Pulse Ox O2 Delivery O2 Flow Rate FiO2 02/17/17 20:35 97.5 78 18 159/88 98 02/17/17 20:48 Room Air General Appearance: well appearing, no apparent distress, alert, GCS 15, non- toxic Head: normocephalic, atraumatic ENT: hearing grossly normal, normal voice Neck: full range of motion, supple Respiratory: no respiratory distress, speaking full sentences Musculoskeletal: no calf tenderness Neurologic: normal inspection, alert, oriented x3, responsive, financial examiner III-XII nml as tested, normal gait Psychiatric: mood/affect normal Skin: rash - generalized patchy scaly rash Medical Decision Making Diagnostic Impression: Primary Impression: Skin rash Additional Impression: Atopic dermatitis ER Course Patient presented for skin rash. Differential diagnosis included was not limited to eczema, contact dermatitis, sunburn, lupus,pellagra among others. Patient's benign exam and does not appear to require any further imaging or laboratory testing at this time. The patient presented eczema flare. Patient was given prescription for prednisone. He is also given prescription for triamcinolone cream. The patient is advised to follow up with primary care doctor in 1-2 days. Patient is advised to return if any worsening condition or if any changes in status that are concerning. Last Vital Signs Date Time Temp Pulse Resp B/P (MAP) Pulse Ox O2 Delivery O2 Flow Rate FiO2 02/17/17 21:19 97.8 70 18 142/76 98 Room Air Status: improved Disposition: HOME, SELF-CARE Scripts Triamcinolone Acet (Triamcinolone Acetonide) 15 Gm Cream..g. 15 GM APPLIC DAILY, #15 GM Prov: Taras Brooks 02/17/17 Prednisone* (PREDNISONE*) 20 Mg Tablet 40 MG ORAL DAILY, #10 TAB Prov: Taras Brooks 02/17/17 Referrals: [facility] ([facility]P) Patient Instructions: Taras Johnson Feb 17, 2017 23:02
== END | disposition home or self-care (01) ==
LOC: EMR 21:13
DX: L20.9 Atopic dermatitis, unspecified (principal); Z91.018 Allergy to other foods
CPT/HCPCS: 99284

== ENCOUNTER 2017-02-22 17:04 | Emergency (ER) | payer OTHER ==
[~2017-02-22] VITALS: Ht 190.5 cm; Wt 99.8 kg
[~2017-02-22 17:04] MED LIST changes: -ATARAX25 MG ORAL; -CLINDAMYCIN HC300 MG ORAL; -KENALOG 0.025%15 GM APPLIC; -NORCO 10-325 T1 EACH ORAL
[2017-02-22 17:27] VITALS: BP 123/84
[2017-02-22] MEDS ORDERED: Lidocaine 1% MPF 10mg/ml 5ml IM ONE (19:00)
[2017-02-22] MEDS ORDERED: Norco 10mg/325mg tab ORAL ONE (19:00)
[2017-02-22 19:27] VITALS: BP 123/84
[2017-02-22] MEDS ORDERED: NORCO 10-325 T1 EACH ORAL (19:49)
[2017-02-22] MEDS ORDERED: CLINDAMYCIN HC300 MG ORAL (19:49)
[2017-02-22] MEDS ORDERED: KENALOG 0.025%15 GM APPLIC (19:50)
--- NOTE | 2017-02-22 19:51 | Emergency Room Report ---
History of Present Illness General Chief Complaint: Male Urogenital Problems Source: Patient Present Illness HPI 51 y/o male c/o scrotal pain x today.States a mass started to develop that is very tender along perineal region. No modifying factors. Denies any dysuria, penile discharge, scrotal pain / tenderness. Patient also has puritic rash. Was here 5 days ago and given steroid and triamcinolone w/ improvement. States only had a small bottle and needs a large tub. 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 Allergies: Coded Allergies: Sesame Seed (Unverified Allergy, Unknown, 07/13/16) Patient History Past Medical History: see triage record Past Surgical History: none Pertinent Family History: none Immunizations: UTD Reviewed Nursing Documentation: PMH: Agreed, PSxH: Agreed Nursing Documentation-PMH Past Medical History: No History, Except For Hx Pacemaker: No - ANEMIA Hx Gastrointestinal Problems: No - Inguinal hernia Review of Systems All Other Systems: negative except mentioned in HPI Physical Exam Vital Signs Date Time Temp Pulse Resp B/P (MAP) Pulse Ox O2 Delivery O2 Flow Rate FiO2 02/22/17 17:17 97.9 84 18 123/84 100 Room Air Sp02 EP Interpretation: reviewed, normal General Appearance: no apparent distress, alert, GCS 15, non-toxic Head: normocephalic, atraumatic Eyes: bilateral eye normal inspection, bilateral eye PERRL ENT: hearing grossly normal, normal pharynx, no angioedema, normal voice Respiratory: chest non-tender, lungs clear, normal breath sounds, speaking full sentences Cardiovascular #1: regular rate, rhythm, no edema Genitourinary: normal inspection, no CVA tenderness, other - 2cm superficial soft fluctulent mass in perineal region, no erythema or induration Musculoskeletal: back normal, gait/station normal, normal range of motion, non- tender Neurologic: alert, oriented x3, responsive, motor strength/tone normal, sensory intact, speech normal Psychiatric: judgement/insight normal, memory normal, mood/affect normal, no suicidal/homicidal ideation Skin: normal color, no rash, warm/dry, well hydrated Lymphatic: no adenopathy Procedures Incision and Drainage Incision and Drainage : Consent: Verbal Site: Perineal Blade Size: 18g needle aspiration I & D Procedure: betadine prep Wound Location: other - perineal Anesthesia: 1% Lidocaine Volume Anesthetic (ccs): 4 Patient Tolerated: Well Complications: None Progress No fluid was able to be aspirated Medical Decision Making PA Attestation Dr. Lu my supervising physician with whom patient management has been discussed with. Diagnostic Impression: Primary Impression: Perineal mass in male Additional Impression: Varicocele ER Course Pt. presents to the ED c/o perineal pain Ddx considered but are not limited to sebaceous cyst, cellulitis, abscess, tumor , hematoma, lymphangitis Vital signs: are WNL, pt. is afebrile H&PE are most consistent with perineal mass ORDERS: US Scrotal / Perineal ED INTERVENTIONS: [place] 10, Clindamycin, Aspiration of mass. DISCHARGE: At this time pt. is stable for d/c to home. Will provide printed patient care instructions, and any necessary prescriptions. Care plan and follow up instructions have been discussed with the patient prior to discharge. CT/MRI/US Diagnostic Results CT/MRI/US Diagnostic Results : Imaging Test Ordered: Scrotal US Impression There is a 2.4 x 1.6 x 1.3 cm mildly heterogeneous area in the soft tissues of the perineum. This may be related to an infectious process such as an abscess/ phlegmon. A neoplastic process cannot be excluded. The testicles are unremarkable and demonstrate symmetric flow. A cyst is seen in the left epididymal head. The right epididymis is unremarkable. Bilateral varicoceles are suspected. Last Vital Signs Date Time Temp Pulse Resp B/P (MAP) Pulse Ox O2 Delivery O2 Flow Rate FiO2 02/22/17 17:27 97.9 18 123/84 100 Room Air 02/22/17 17:17 84 Status: unchanged Disposition: HOME, SELF-CARE Condition: Improved Scripts Triamcinolone Acet (Triamcinolone Acetonide) 15 Gm Cream..g. 0.1 % APPLIC BID for 14 Days, #454 GM Prov: SABRY,TAMEEM P.A. 02/22/17 Hydrocodone Bit/Acetaminophen 10-325* (NORCO 10-325*) 1 Each Tablet 1 TAB ORAL Q8H Y for For Pain, #15 TAB 0 Refills PRN PAIN Prov: SABRY,TAMEEM P.A. 02/22/17 Clindamycin Hcl (CLINDAMYCIN HCL) 300 Mg Capsule 300 MG ORAL TID for 10 Days, #30 CAP Prov: SABCHETTAMEEM P.A. 02/22/17 Patient Instructions: Abscess, [place] Rashes Additional Instructions: Take medication as directed. Patient instructed to take ibuprofen and tylenol as needed for pain. Patient to follow up with PCP within 2-3 days. Patient is to keep the infected area clean and dry. They can take a shower or bath, but be sure to pat the area dry with a towel afterward. Patient instructed to not put any antibiotic ointments or creams on the area. Patient should come back sooner if their symptoms do not get better within 3 days of starting treatment or if the red area gets bigger, more swollen, or more painful. MANAN KAT Feb 22, 2017 19:51
[2017-02-22] MEDS ORDERED: Clindamycin 150mg cap ORAL ONE (20:00)
[2017-02-22 20:05] VITALS: BP 135/75
--- NOTE | 2017-02-23 10:21 | Diagnostic Imaging Report ---
Indications: Peroneal swelling and pain Technique: Grayscale and duplex images of the scrotum and perineal region Comparison:None Findings: In the perineal region in the area of swelling, there is an area of mixed echogenicity which measures 2.4 x 1.6 x 3.4 cm. This demonstrates some internal vascularity. There is some central lower attenuation within this area. The right testicle measures 4.8cm in length. It demonstrates normal echogenicity. There is a small hydrocele. There is also a varicocele. Normal Doppler flow. Normal epididymis. The left testicle measures 4.7 cm in length.It demonstrates somewhat heterogeneous echogenicity with a reticular pattern.Normal Doppler flow. There is a 7 mm cyst within the epididymal head. There is a left periosteal there is a small left hydrocele. Normal epididymis. Impression: 2.4 x 1.6 x 3.4 cm mixed echogenicity area in the perineum, apparently corresponding to clinically evident abnormality. This demonstrates some vascularity. This may represent an area of phlegmon possibly with some early abscess formation centrally. Neoplastic process not completely excludable Normal testicles, no evidence of torsion or orchitis Cyst, either an epididymal cyst or spermatocele, in the left epididymal head Bilateral hydroceles and varicoceles
== END 2017-02-22 20:10 | disposition home or self-care (01) ==
LOC: EMR 18:03
DX: I86.1 Scrotal varices (principal); N43.3 Hydrocele, unspecified; N50.3 Cyst of epididymis
CPT/HCPCS: 10060; 76870; 99284

== ENCOUNTER 2017-02-24 21:01 | Emergency (ER) | payer OTHER ==
[~2017-02-24] VITALS: Ht 190.5 cm; Wt 101.6 kg
[~2017-02-24 21:01] MED LIST changes: +CLINDAMYCIN HC300 MG ORAL; +KENALOG 0.025%15 GM APPLIC; +NORCO 10-325 T1 EACH ORAL
[2017-02-24 21:11] VITALS: BP 136/88
[2017-02-24 21:20] VITALS: BP 136/88
[2017-02-24] MEDS ORDERED: ATARAX25 MG ORAL (21:39)
--- NOTE | 2017-02-24 23:55 | Emergency Room Report ---
History of Present Illness General Chief Complaint: Male Urogenital Problems Source: Patient Present Illness HPI Patient is a 51-year-old male who presented after increased testicular swelling. Patient gradual onset of symptoms. Patient prior history of HIV as well as inguinal hernias. He had not been vomiting. Patient had not having any fever.Patient had not been having any genital discharge. He had recently had scrotal ultrasound at this hospital. He denied any recent trauma and stated that he had recently had aspiration of the lesion near his crural area. Allergies: Coded Allergies: Sesame Seed (Unverified Allergy, Unknown, 07/13/16) Patient History Past Medical History: see triage record Reviewed Nursing Documentation: PMH: Agreed, PSxH: Agreed Nursing Documentation-PMH Past Medical History: No History, Except For Hx Pacemaker: No - ANEMIA Hx Gastrointestinal Problems: No - Inguinal hernia Review of Systems All Other Systems: negative except mentioned in HPI Physical Exam Vital Signs Date Time Temp Pulse Resp B/P (MAP) Pulse Ox O2 Delivery O2 Flow Rate FiO2 02/24/17 21:11 98.2 87 15 136/88 98 Room Air General Appearance: well appearing, no apparent distress, alert, GCS 15 Head: normocephalic, atraumatic ENT: hearing grossly normal, normal voice Neck: full range of motion, supple Respiratory: no respiratory distress, speaking full sentences Genitourinary: other - approximately 0.5 cm area of erythema Musculoskeletal: normal inspection, no calf tenderness Neurologic: normal inspection, alert, oriented x3, normal gait Psychiatric: mood/affect normal Skin: no rash, other - scrotum normal color, small erythematous area to crural region Medical Decision Making Diagnostic Impression: Primary Impression: Scrotal edema Additional Impressions: Atopic dermatitis Varicocele ER Course Patient presented for testicular swelling. Differential diagnosis included was not limited to the Fourniere's gangrene, abscess, cellulitis, hydrocele, hernia among others. Patient's benign exam and does not appear to require any further imaging or laboratory testing at this time. The patient has what appears to be bilateral hernias there is no evident bowel in the hernia currently. The patient was advised elevation. He was advised followup with his primary care physician for general surgery referral. Last Vital Signs Date Time Temp Pulse Resp B/P (MAP) Pulse Ox O2 Delivery O2 Flow Rate FiO2 02/24/17 21:52 98.2 87 15 136/88 98 Room Air Status: improved Disposition: HOME, SELF-CARE Condition: Stable Scripts Hydroxyzine HCl (Hydroxyzine HCl) 25 Mg Tablet 25 MG ORAL FOUR TIMES A DAY for Itching, #30 TAB Prov: Taras Brooks 02/24/17 Referrals: [facility] (PCP) Patient Instructions: Rash Additional Instructions: use a towel to elevate scrotum at night Taras Brooks Feb 24, 2017 23:55
== END 2017-02-24 21:52 | disposition home or self-care (01) ==
LOC: EMR 21:30
DX: N50.89 Other specified disorders of the male genital organs (principal); L20.9 Atopic dermatitis, unspecified; I86.1 Scrotal varices
CPT/HCPCS: 99283

== ENCOUNTER 2017-07-03 21:17 | Emergency (ER) | payer OTHER ==
[~2017-07-03] VITALS: Ht 190.5 cm; Wt 95.3 kg
[~2017-07-03 21:17] MED LIST changes: +ATARAX25 MG ORAL
--- NOTE | 2017-07-03 21:51 | Emergency Room Report ---
History of Present Illness General Chief Complaint: Upper Respiratory Illness Source: Patient Present Illness HPI This is a 52-year-old male with a history of HIV. CD4 count is normal and viral load is undetectable. He presents chief complaint of shortness of breath and coughing for the last 3 days. Subjective fever. No nausea no vomiting. Coughing is productive of phlegm. Worse with exertion. Worse with lying flat. History of bronchitis in the past. Allergies: Coded Allergies: Sesame Seed (Unverified Allergy, Unknown, 07/13/16) Patient History Past Medical History: see triage record, old chart reviewed, HIV Past Surgical History: other Pertinent Family History: none Social History: Denies: smoking Immunizations: other Reviewed Nursing Documentation: PMH: Agreed; PSxH: Agreed Nursing Documentation-PMH Hx Pacemaker: No - ANEMIA Hx Gastrointestinal Problems: No - Inguinal hernia Review of Systems Constitutional: Reports: chills, fever Eye: Denies: eye pain, blurred vision ENT: Denies: ear pain, nose congestion, throat swelling Respiratory: Reports: cough, shortness of breath, sputum Cardiovascular: Denies: chest pain, palpitations Gastrointestinal: Denies: abdominal pain, diarrhea, nausea, vomiting Musculoskeletal: Denies: back pain, joint pain Skin: Denies: rash Neurological: Denies: headache, numbness Endocrine: Denies: increased thirst, increased urine Hematologic/Lymphatic: Denies: easy bruising All Other Systems: negative except mentioned in HPI Physical Exam Vital Signs Date Time Temp Pulse Resp B/P (MAP) Pulse Ox O2 Delivery O2 Flow Rate FiO2 07/03/17 21:38 98.5 103 24 121/79 95 Room Air 98.4 vitals unremarkable Sp02 EP Interpretation: reviewed, normal General Appearance: well appearing, no apparent distress, alert Head: normocephalic, atraumatic Eyes: bilateral eye PERRL, bilateral eye EOMI ENT: hearing grossly normal, normal pharynx Neck: full range of motion, supple, no meningismus Respiratory: chest non-tender, decreased breath sounds, accessory muscle use, wheezing Cardiovascular #1: regular rate, rhythm, no murmur Gastrointestinal: normal bowel sounds, non tender, no mass, no organomegaly, no bruit, non-distended Musculoskeletal: back normal, gait/station normal, normal range of motion Psychiatric: mood/affect normal Skin: warm/dry Medical Decision Making Diagnostic Impression: Primary Impression: Upper respiratory infection Qualified Codes: J06.9 - Acute upper respiratory infection, unspecified Additional Impression: Atypical pneumonia ER Course Patient presents with cough and fever. Because of his HIV status we'll cover for atypical pneumonia. Better after breathing treatment. We'll discharge home. Last Vital Signs Date Time Temp Pulse Resp B/P (MAP) Pulse Ox O2 Delivery O2 Flow Rate FiO2 07/03/17 21:38 98.5 103 24 121/79 95 Room Air 98.4 Status: improved Disposition: HOME, SELF-CARE Condition: Stable Scripts Azithromycin* (ZITHROMAX*) 250 Mg Tablet 250 MG ORAL DAILY, #6 TAB 0 Refills Take two tablets by mouth today, then take one tablet by mouth daily for four days Prov: CHARLENE SMALL M.D. 07/03/17 Prednisone* (PREDNISONE*) 20 Mg Tablet 60 MG ORAL DAILY, #12 TAB Prov: CHARLENE SMALL M.D. 07/03/17 Albuterol Sulfate* (ALBUTEROL SULFATE MDI*) 8.5 Gm Hfa.aer.ad 2 PUFF INH Q4H PRN for cough/wheezing, #1 EA 0 Refills Prov: CHARLENE SMALL M.D. 07/03/17 [facility]errals: [facility] (PCP) Patient Instructions: Upper Respiratory Infection, Adult Additional Instructions: Follow-up with your in 2-3 days. Return if worse. CHARLENE SMALL M.D. Jul 03, 2017 21:51
[2017-07-03] MEDS ORDERED: Albuterol/Ipratropium 3ml neb HHN ONE (22:00)
[2017-07-03 23:06] VITALS: BP 122/89
[2017-07-03] MEDS ORDERED: PREDNISONE20 MG ORAL (23:06)
[2017-07-03] MEDS ORDERED: ALBUTEROL SULF8.5 GM INH (23:06)
[2017-07-03] MEDS ORDERED: AZITHROMYCIN250 MG ORAL (23:06)
== END 2017-07-04 00:22 | disposition home or self-care (01) ==
LOC: EMR 21:48
DX: J18.9 Pneumonia, unspecified organism (principal); J06.9 Acute upper respiratory infection, unspecified
CPT/HCPCS: 94640; 94664; 99284; J7512; J7620

== ENCOUNTER 2017-07-06 15:56 | Emergency (ER) | payer OTHER ==
[~2017-07-06] VITALS: Ht 190.5 cm; Wt 102.1 kg
[2017-07-06 16:21] VITALS: BP 129/81
[2017-07-06] MEDS ORDERED: Albuterol/Ipratropium 3ml neb HHN ONE (16:30)
[2017-07-06] MEDS ORDERED: CLARITIN-D 121 EAC1 ORAL (16:40)
[2017-07-06] MEDS ORDERED: PREDNISONE20 MG ORAL (16:40)
[2017-07-06 17:00] VITALS: BP 129/81
--- NOTE | 2017-07-07 08:35 | Diagnostic Imaging Report ---
Indication: Shortness of breath and cough Technique: One view of the chest Comparison: 05/03/2015 Findings: There is atelectasis at the left lung base. Lungs and pleural spaces are clear otherwise. No other significant interim change Impression: Left basilar atelectasis No acute process otherwise
--- NOTE | 2017-07-08 13:51 | Emergency Room Report ---
History of Present Illness General Chief Complaint: Upper Respiratory Illness Source: Patient, Medical Record Present Illness HPI Patient is a 52-year-old male who presented after continued cough the patient recently been seen and treated with oral antibiotics for possible pneumonia. The patient noted have prior history of HIV. The patient denies any productive cough. He reports having continued congestion as well as slight improvement since being started on antibiotics. He denies any hemoptysis. Patient denies new leg pain or swelling or chest discomfort. Allergies: Coded Allergies: Sesame Seed (Unverified Allergy, Unknown, 07/13/16) Patient History Past Medical History: see triage record Reviewed Nursing Documentation: PMH: Agreed; PSxH: Agreed Nursing Documentation-PMH Hx Pacemaker: No - ANEMIA Hx Gastrointestinal Problems: No - Inguinal hernia Review of Systems All Other Systems: negative except mentioned in HPI Physical Exam Vital Signs Date Time Temp Pulse Resp B/P (MAP) Pulse Ox O2 Delivery O2 Flow Rate FiO2 07/06/17 16:10 98.0 94 18 129/81 95 Room Air 98.1 General Appearance: well appearing, no apparent distress, alert, GCS 15 Head: normocephalic, atraumatic ENT: hearing grossly normal, normal voice Neck: full range of motion, supple Respiratory: no respiratory distress, speaking full sentences Cardiovascular #1: normal inspection, regular rate, rhythm Musculoskeletal: no calf tenderness Neurologic: normal gait Psychiatric: mood/affect normal Skin: no rash Medical Decision Making Diagnostic Impression: Primary Impression: Bronchitis ER Course This presented for cough. Differential diagnosis included but was not limited to bronchitis, pneumonia, pulmonary embolism, pericarditis, asthma, foreign body. Chest x-ray one view interpreted by me no showed evidence of pneumonia at this time. The patient was given protrusion for steroid as well as an inhaler the patient was given breathing treatment with improvement. The patient is advised to follow up with primary care doctor in 1-2 days. Patient is advised to return if any worsening condition or if any changes in status that are concerning. This report is dictated with [employer] cos[employer] counter manager software which may occasionally lead to discrepancies related to use of this software. Chest X-Ray Diagnostic Results Chest X-Ray Diagnostic Results : Chest X-Ray Ordered: Yes # of Views/Limited/Complete: 1 View Indication: Chest Pain EP Interpretation: Yes Interpretation: no consolidation, no effusion, no pneumothorax, no acute cardiopulmonary disease Impression: No acute disease Electronically Signed by: Electronically signed by Dr. Taras Brooks M.D. Last Vital Signs Date Time Temp Pulse Resp B/P (MAP) Pulse Ox O2 Delivery O2 Flow Rate FiO2 07/06/17 17:03 96 18 96 Room Air 07/06/17 17:00 98.1 129/81 98.1 Status: improved Disposition: HOME, SELF-CARE Condition: Stable Scripts Loratadine/Pseudoephedrine (CLARITIN-D 12 HOUR TABLET) 1 Each Tab.er.12h 1 TAB ORAL EVERY 12 HOURS, #30 TAB Prov: Taras Brooks 07/06/17 Prednisone* (PREDNISONE*) 20 Mg Tablet 40 MG ORAL DAILY, #10 TAB Prov: Taras Brooks 07/06/17 Referrals: [facility] (PCP) Patient Instructions: Acute Bronchitis Taras Brooks Jul 08, 2017 13:51
== END 2017-07-06 17:28 | disposition home or self-care (01) ==
LOC: EMR 17:11
DX: J40 Bronchitis, not specified as acute or chronic (principal)
CPT/HCPCS: 71045; 94640; 94664; 99283; J7512; J7620

== ENCOUNTER 2018-01-02 13:48 | Emergency (ER) | payer OTHER ==
[~2018-01-02] VITALS: Ht 188 cm; Wt 95.3 kg
[~2018-01-02 13:48] MED LIST changes: +CLARITIN-D 121 EAC1 ORAL
[2018-01-02] MEDS ORDERED: PREDNISONE20 MG ORAL (14:28)
[2018-01-02] MEDS ORDERED: BACTRIM DS TAB1 EAC1 ORAL (14:28)
[2018-01-02] MEDS ORDERED: BACITRACIN-P28.35 GM TP (14:28)
--- NOTE | 2018-01-02 14:29 | Emergency Room Report ---
History of Present Illness General Chief Complaint: Skin Rash/Abscess Source: Patient Present Illness HPI 52-year-old male patient presents ER complaining of rash on face and hands and neck. Patient reports that the rash on his left lower chin appeared yesterday. Denies pain or itchiness, states that his chest "bothersome". Patient also complaining of a history of eczema, states that he has eczematous rash on his wrists and neck, states it is very pruritic, states that he exacerbates the rash by showering and hot water, states that he has been using hydrocortisone cream. Patient denies fever, chest pain, shortness of breath, vomiting. Denies bug bite. Denies new soaps or detergents. Reports history of HIV, states that his viral load is undetectable and his CD4 count is elevated.denies history of diabetes. Allergies: Coded Allergies: Sesame Seed (Unverified Allergy, Unknown, 07/13/16) Patient History Past Medical History: see triage record Reviewed Nursing Documentation: PMH: Agreed; PSxH: Agreed Nursing Documentation-PMH Past Medical History: No History, Except For Hx Pacemaker: No - ANEMIA Hx Gastrointestinal Problems: No - Inguinal hernia Review of Systems All Other Systems: negative except mentioned in HPI Physical Exam Vital Signs Date Time Temp Pulse Resp B/P (MAP) Pulse Ox O2 Delivery O2 Flow Rate FiO2 01/02/18 14:03 97.6 91 16 127/82 98 Room Air 97.5 Sp02 EP Interpretation: reviewed, normal General Appearance: well appearing, no apparent distress, alert, GCS 15, non- toxic Head: normocephalic, atraumatic Eyes: bilateral eye normal inspection, bilateral eye PERRL ENT: hearing grossly normal, normal pharynx, no angioedema, normal voice, uvula midline, moist mucus membranes Neck: full range of motion Respiratory: lungs clear, normal breath sounds, no rhonchi, no respiratory distress, no accessory muscle use, no wheezing, speaking full sentences Cardiovascular #1: regular rate, rhythm, no edema Genitourinary: no CVA tenderness Musculoskeletal: back normal, digits/nails normal, gait/station normal, normal range of motion, non-tender Neurologic: alert, oriented x3, responsive, motor strength/tone normal, sensory intact Psychiatric: mood/affect normal Skin: other - 1 cm circular area of erythema with mild edema noted on left lower chin, no induration or fluctuance, warmth to touch, no drainage, no central clearing, no vesicles, no blisters, no puncture [place]; bilateral wrists and neck: Eczematous rash with excoriations, dry skin, no erythema or edema Medical Decision Making PA Attestation Dr. Lu is my supervising Physician whom patient management has been discussed with. Diagnostic Impression: Primary Impression: Cellulitis Additional Impression: Eczema ER Course Pt. presents to the ED c/o cellulitis.. Ddx considered but are not limited to rash, cellulitis, abscess, atopic dermatitis, angioedema. ezcema, allergic reaction, DVT. Vital signs: are WNL, pt. is afebrile ER COURSE: physical exam consistent with small area of cellulitis on left lower chin, no fluctuance or induration,does not require incision and drainage. Will provide patient with oral antibiotics, advised on topical antibiotics use. Also rash on wrists and neck consistent with eczema, advised patient to continue taking hydrocortisone, provided patient with prednisone to help with itching symptoms. Advised patient to keep skin well hydrated. Patient follow- up with security compliance specialist. Do not scratch her itch. Take Claritin or Benadryl for itching symptoms. avoid hot showers. keep skin well hydrated. followup with PCP for wound check. continue use hydrocortisone cream, may mix with bacitracin apply to eczematous regions to prevent infection. ER precautions given. DISCHARGE: -Rx provided for prednisone -Rx provided for Bactrim -Rx provided for bacitracin At this time pt. is stable for d/c to home. Patient resting comfortably in no acute distress, nontoxic appearing. Will provide printed patient care instructions, and any necessary prescriptions. Patient instructed to complete current course of antibiotics. Care plan and follow up instructions have been discussed with the patient prior to discharge. Patient instructed to follow-up with primary care provider in 3 - 5 days and discuss further referral to java programming professor and vascular physician. Patient questions asked and answered. ER precautions given. Patient instructed to return to ER immediately for any new or worsening of symptoms including but not limited to increasing SOB, persistent fever, intractable vomiting, calf pain. - Please note that this Emergency Department Report was dictated using [employer] machine technician technology software, occasionally this can lead to erroneous entry secondary to interpretation by the dictation equipment. Last Vital Signs Date Time Temp Pulse Resp B/P (MAP) Pulse Ox O2 Delivery O2 Flow Rate FiO2 01/02/18 14:03 97.6 91 16 127/82 98 Room Air 97.5 Disposition: HOME, SELF-CARE Condition: Stable Scripts Bacitracin/Polymyxin B Sulfate (BACITRACIN-POLYMYXIN OINTMENT) 28.35 Gm Oint...g. 1 APPLIC TP BID, #28 GM Prov: Nolberto Rico 01/02/18 Trimethoprim/Sulfamethoxazole 160/800* (BACTRIM DS TABLET*) 1 Each Tablet 1 TAB ORAL TWICE A DAY for 7 Days, #14 TAB Prov: Nolberto Rico 01/02/18 Prednisone* (PREDNISONE*) 20 Mg Tablet 20 MG ORAL DAILY for 4 Days, #4 TAB 0 Refills Prov: Nolberto Rico 01/02/18 Patient Instructions: Cellulitis, [id number], Eczema Additional Instructions: Followup with primary care provider in 3 -5 days for wound check. Request referral to dermatology. Do not scratch or itch. Apply cool compresses to affected area. Take medications as directed. take Benadryl and/or Claritin for itching symptoms. Do not apply topical steroid medication to face or skin creases. SE Benadryl drowsiness, do not take prior to drinking, driving, operating heavy machinery. Take Claritin during the day and Benadryl at night for itching symptoms. Patient questions asked and answered. ER precautions given, patient instructed to return to ER immediately for any new or worsening of symptoms. [facility] Nolberto Rico Jan 02, 2018 14:29
[2018-01-02 14:43] VITALS: BP 127/82
== END 2018-01-02 14:45 | disposition home or self-care (01) ==
LOC: EMR 14:28
DX: L03.211 Cellulitis of face (principal); L30.9 Dermatitis, unspecified; R21 Rash and other nonspecific skin eruption
CPT/HCPCS: 99283

== ENCOUNTER 2018-01-05 14:14 | Emergency (ER) | payer OTHER ==
[~2018-01-05] VITALS: Ht 190.5 cm; Wt 99.8 kg
[~2018-01-05 14:14] MED LIST changes: +BACITRACIN-P28.35 GM TP
[2018-01-05 14:25] VITALS: BP 129/87
--- NOTE | 2018-01-05 15:40 | Emergency Room Report ---
History of Present Illness General Chief Complaint: Skin Rash/Abscess Source: Patient Present Illness HPI Patient presents with complaints of ongoing redness and now discharge in the left lower chin Patient also complains of several lesions in the right axilla Also left groin. Denies any fevers Patient reports taking antibiotic for the past 2 days Denies any vomiting denies any diarrhea Denies any other trauma Patient does have a primary physician however has not been able to follow-up as of yet Denies any difficulty opening or closing the jaw Allergies: Coded Allergies: Sesame Seed (Unverified Allergy, Unknown, 07/13/16) Patient History Past Medical History: see triage record Pertinent Family History: none Reviewed Nursing Documentation: PMH: Agreed; PSxH: Agreed Nursing Documentation-PMH Past Medical History: No History, Except For Hx Cardiac Problems: No - HIV Hx Pacemaker: No - ANEMIA Hx Gastrointestinal Problems: No - Inguinal hernia Review of Systems All Other Systems: negative except mentioned in HPI Physical Exam Vital Signs Date Time Temp Pulse Resp B/P (MAP) Pulse Ox O2 Delivery O2 Flow Rate FiO2 01/05/18 14:19 97.9 93 18 135/88 97 Room Air 97.9 Sp02 EP Interpretation: reviewed, normal General Appearance: well appearing, no apparent distress Head: normocephalic, atraumatic Eyes: bilateral eye PERRL, bilateral eye EOMI ENT: other - Erythematous lesion involving the left half aspect of the chin, there is an opening with some serosanguineous discharge, no obvious fluctuance, the evaluation of the inner aspect of the lip does not show involvement Neck: full range of motion, supple Respiratory: chest non-tender, lungs clear Cardiovascular #1: normal peripheral pulses Gastrointestinal: normal bowel sounds, non tender, soft Musculoskeletal: normal inspection Neurologic: alert, oriented x3 Skin: other - Several areas of what appear to be consistent with folliculitis right axilla, one area on the left inguinal region, all very small in nature with small pustules no streaking no fluctuance palpated Lymphatic: no adenopathy Medical Decision Making Diagnostic Impression: Primary Impression: Cellulitis Additional Impression: Folliculitis ER Course Given the patient's history exam and findings Patient does appear to have consistent findings with cellulitis There is some drainage from the left lower chin area with possible small abscess however I cannot palpate any fluctuance Patient appears to have been placed on Bactrim Rocephin injection is provided here more urgently and patient has Keflex added to his regimen Patient has follow-up with his primary physician this upcoming week Does not appear septic or toxic and will return with any changes Last Vital Signs Date Time Temp Pulse Resp B/P (MAP) Pulse Ox O2 Delivery O2 Flow Rate FiO2 01/05/18 14:25 97.7 89 14 129/87 100 Room Air 97.7 Status: improved Disposition: HOME, SELF-CARE Condition: Improved Scripts Cephalexin* (KEFLEX*) 500 Mg Capsule 500 MG ORAL EVERY 6 HOURS for 10 Days, CAP Prov: Conchita Man DO 01/05/18 Additional Instructions: Patient is provided with the discharge instructions notified to follow up with primary doctor in the next 2-3 days otherwise return to the er with any worsening symptoms. Please note that this report is being documented using [employer] technology. This can lead to erroneous entry secondary to incorrect interpretation by the dictating instrument. Conchita Man DO Jan 05, 2018 15:40
[2018-01-05] MEDS ORDERED: Lidocaine 1% MPF 10mg/ml 5ml INJ ONE (15:45)
[2018-01-05] MEDS ORDERED: CEPHALEXIN500 MG ORAL (16:26)
[2018-01-05 16:38] VITALS: BP 115/85
== END 2018-01-05 16:38 | disposition home or self-care (01) ==
LOC: EMR 15:47
DX: L03.90 Cellulitis, unspecified (principal); L73.9 Follicular disorder, unspecified
CPT/HCPCS: 96372; 99283; J0696

== ENCOUNTER 2018-03-31 14:38 | Emergency (ER) | payer OTHER ==
[~2018-03-31] VITALS: Ht 190.5 cm; Wt 81.6 kg
[~2018-03-31 14:38] MED LIST changes: +TRIAMCINOLONE A15 G2 TP
[2018-03-31 14:53] VITALS: BP 107/64
--- NOTE | 2018-03-31 15:00 | NUR ---
ED Nurse Note: Pt. AAOx4. ambulatory. c/o worsening rash over the chest; attempted to relieve sym with Benadryl and hydrocortisone cream
--- NOTE | 2018-03-31 15:21 | Emergency Room Report ---
History of Present Illness General Chief Complaint: Skin Rash/Abscess Source: Patient Present Illness HPI 53-year-old male currently taking prophylactic Truvada 3 years and history of pruritic rash in the chest and upper extremities 3 months here complaining of return of his rash. Denies pain with the rash however complains of extreme pruritus. Use, exposure to new allergens, , palpitation, SOB. Denies difficulty breathing or swallowing. His rash and rest of his body. He was just here 3 months ago with the same complaint and was given triamcinolone cream there was antibiotic ointment. For this condition. Pending referral and appointment with a mine technician. Allergies: Coded Allergies: Sesame Seed (Unverified Allergy, Unknown, 07/13/16) Patient History Past Medical History: see triage record Past Surgical History: unable to obtain Pertinent Family History: none Immunizations: UTD Reviewed Nursing Documentation: PMH: Agreed; PSxH: Agreed Nursing Documentation-PMH Past Medical History: No History, Except For Hx Cardiac Problems: No - HIV Hx Pacemaker: No - ANEMIA Hx Gastrointestinal Problems: No - Inguinal hernia Hx Neurological Problems: No - Eczema Review of Systems All Other Systems: negative except mentioned in HPI Physical Exam Vital Signs Date Time Temp Pulse Resp B/P (MAP) Pulse Ox O2 Delivery O2 Flow Rate FiO2 03/31/18 14:53 97.3 89 16 107/64 98 Room Air Sp02 EP Interpretation: reviewed, normal General Appearance: normal inspection, well appearing, no apparent distress, alert Head: normocephalic, atraumatic Eyes: bilateral eye normal inspection, bilateral eye PERRL ENT: normal ENT inspection, normal pharynx, no angioedema Neck: normal inspection, full range of motion, supple Respiratory: normal inspection, chest non-tender, lungs clear, no rhonchi, no retraction, no wheezing Cardiovascular #1: normal inspection, no edema, no gallop, no murmur, other - her tachycardia rash on chest and anterior neck, warm to touch Gastrointestinal: normal inspection, non tender, soft Rectal: deferred Musculoskeletal: normal inspection, digits/nails normal, gait/station normal Neurologic: normal inspection, alert, responsive Psychiatric: normal inspection, judgement/insight normal Skin: warm/dry, well hydrated, other - Or tachycardia and anterior chest and anterior neck, warm to touch, no pus Lymphatic: normal inspection, no adenopathy Medical Decision Making PA Attestation All diagnoses and treatment plans were reviewed and discussed with my supervising physician Dr. Tomas Diagnostic Impression: Primary Impression: Rash and other nonspecific skin eruption Additional Impression: Cellulitis ER Course 53-year-old male currently taking prophylactic Truvada 3 years and history of pruritic rash in the chest and upper extremities 3 months here complaining of return of his rash. Denies pain with the rash however complains of extreme pruritus. Use, exposure to new allergens, , palpitation, SOB. Denies difficulty breathing or swallowing. His rash and rest of his body. He was just here 3 months ago with the same complaint and was given triamcinolone cream there was antibiotic ointment. For this condition. Pending referral and appointment with a mine technician. Ddx considered but are not limited to cellulitis, allergic reaction, rabies Vital signs: are WNL, pt. is afebrile H&PE are most consistent with allergic reaction and cellulitis ORDERS: Keflex, prednisone, triamcinolone ED INTERVENTIONS: None required at this time. DISCHARGE: At this time pt. is stable for d/c to home. Will provide printed patient care instructions, and any necessary prescriptions. Care plan and follow up instructions have been discussed with the patient prior to discharge. follow-up with a mine technician Last Vital Signs Date Time Temp Pulse Resp B/P (MAP) Pulse Ox O2 Delivery O2 Flow Rate FiO2 03/31/18 14:53 97.3 89 16 107/64 98 Room Air Disposition: HOME, SELF-CARE Condition: Stable Scripts Triamcinolone Acet (Triamcinolone Acetonide) 15 Gm Cream..g. 2 GM APPLIC BID, #40 GM Prov: Emily Alonzo 03/31/18 Cephalexin* (KEFLEX*) 500 Mg Capsule 500 MG ORAL EVERY 6 HOURS for 7 Days, #28 CAP Prov: Emily Alonzo 03/31/18 Prednisone (Prednisone) 20 Mg Tablet 2 TAB PO DAILY for 4 Days, #8 TAB Prov: Emily Alonzo 03/31/18 Patient Instructions: Cellulitis, [id number], Rash Additional Instructions: take medications, follow up with care provider mine technician as skin rashes chronic Emily Alonzo Mar 31, 2018 15:21
[2018-03-31] MEDS ORDERED: KENALOG 0.025%15 GM APPLIC (15:24)
[2018-03-31] MEDS ORDERED: CEPHALEXIN500 MG ORAL (15:24)
[2018-03-31] MEDS ORDERED: PREDNISONE20 M1 PO (15:24)
[2018-03-31 15:29] VITALS: BP 107/64
--- NOTE | 2018-03-31 15:30 | NUR ---
ED Nurse Note: Patient is being discharged from medical care. Awake, alert and oriented x4. After care instructions, were given. Patient verbalized understanding of After care instructions. All medical devices such as ID band were removed. Patient ambulated out with all personal belongings with steady gait.
== END 2018-03-31 15:30 | disposition home or self-care (01) ==
LOC: EMR 15:20
DX: L03.313 Cellulitis of chest wall (principal); L03.114 Cellulitis of left upper limb; L03.113 Cellulitis of right upper limb
CPT/HCPCS: 99283

== ENCOUNTER 2018-05-25 19:30 | Emergency (ER) | payer SELFPAY ==
[~2018-05-25] VITALS: Ht 190.5 cm; Wt 93.0 kg
[~2018-05-25 19:30] MED LIST changes: +PREDNISONE20 M1 PO
--- NOTE | 2018-05-25 20:00 | NUR ---
ED Nurse Note: Pt walked in c/o n/v/d x 3 days, pt reports bodyache as well but denies fever. Noted redness and rash, and anterior and posterior trunk and neck and facial area. Pt states he gets it often when he is dry. pt AA&ox4, gcs=15, skin warm and dry, resp even and unlabored on RA, no active nausea or vomiting at this time but will cont monitor, airway intact, ambulatory w/ steady gait.
[2018-05-25] MEDS ORDERED: DiphenhydrAMINE 50mg/ml Inj IVP ONE (20:45)
[2018-05-25] MEDS ORDERED: LORazepam Inj 2mg/ml 1ml IV ONE (20:45)
--- NOTE | 2018-05-25 20:58 | Emergency Room Report ---
History of Present Illness General Chief Complaint: Nausea, Vomiting, and Diarrhea Source: Patient (KarleejacintaConchita JEFFRIES) Present Illness HPI Patient presents with complaints of increased nausea one episode of vomiting Several days of diarrhea and loose stools associated with some cramping Denies any blood in the stool denies any recent antibiotic coverage Denies any chest pain or shortness of breath Patient continues to scratch at his face and neck area And reports that he did end up seeing a swedger and he was told everything was okay Patient has had several presentations for diffuse rash Denies any recent drug abuse denies any fevers denies any neck pain or photophobia (Conchita Man DO) Allergies: Coded Allergies: Sesame Seed (Unverified Allergy, Unknown, 07/13/16) Patient History Past Medical History: see triage record Pertinent Family History: none Reviewed Nursing Documentation: PMH: Agreed; PSxH: Agreed (Conchita Man DO) Nursing Documentation-PMH Past Medical History: No History, Except For Hx Cardiac Problems: No - HIV Hx Pacemaker: No - ANEMIA Hx Gastrointestinal Problems: No - Inguinal hernia Hx Neurological Problems: No - Eczema (Conchita Man DO) Review of Systems All Other Systems: negative except mentioned in HPI (Conchita Man DO) Physical Exam Vital Signs Date Time Temp Pulse Resp B/P (MAP) Pulse Ox O2 Delivery O2 Flow Rate FiO2 05/25/18 19:49 115 28 127/89 97 Room Air Sp02 EP Interpretation: reviewed, normal General Appearance: no apparent distress Head: normocephalic, atraumatic Eyes: bilateral eye PERRL, bilateral eye EOMI ENT: hearing grossly normal, dry mucus membranes Neck: full range of motion, supple Respiratory: lungs clear, no retraction, no accessory muscle use Cardiovascular #1: regular rate, rhythm Gastrointestinal: non tender, soft Genitourinary: no CVA tenderness Musculoskeletal: normal inspection Neurologic: alert, oriented x3, responsive Skin: other - Several areas of scab diffusely in the upper facial region, eczema, chronic dermatitis Lymphatic: no adenopathy (Conchita Man DO) Medical Decision Making Diagnostic Impression: Primary Impression: Nausea, vomiting, and diarrhea Additional Impression: Methamphetamine abuse ER Course Please see above note. Patient + amphetamine. Patient not truthful about recent use. Better after observation. No vomiting and tolerating oral intake. Purposeful. Wants mediation for diarrhea. (After Rx given, he states he has loperamide.) Patient stable for outpatient observation and treatment. Laboratory Tests Test 05/25/18 21:05 White Blood Count 11.0 K/UL (4.8-10.8) H Red Blood Count 6.41 M/UL (4.70-6.10) H Hemoglobin 17.7 G/DL (14.2-18.0) Hematocrit 55.6 % (42.0-52.0) H Mean Corpuscular Volume 87 FL (80-99) Mean Corpuscular Hemoglobin 27.6 PG (27.0-31.0) Mean Corpuscular Hemoglobin Concent 31.8 G/DL (32.0-36.0) L Red Cell Distribution Width 14.3 % (11.6-14.8) Platelet Count 321 K/UL (150-450) Mean Platelet Volume 5.5 FL (6.5-10.1) L Neutrophils (%) (Auto) 48.3 % (45.0-75.0) Lymphocytes (%) (Auto) 26.3 % (20.0-45.0) Monocytes (%) (Auto) 14.1 % (1.0-10.0) H Eosinophils (%) (Auto) 9.7 % (0.0-3.0) H Basophils (%) (Auto) 1.7 % (0.0-2.0) Sodium Level 131 MMOL/L (136-145) L Potassium Level 4.1 MMOL/L (3.5-5.1) Chloride Level 98 MMOL/L (98-107) Carbon Dioxide Level 21 MMOL/L (21-32) Anion Gap 12 mmol/L (5-15) Blood Urea Nitrogen 35 mg/dL (7-18) H Creatinine 1.2 MG/DL (0.55-1.30) Estimate Glomerular Filtration Rate > 60 mL/min (>60) Glucose Level 108 MG/DL (74-106) H Calcium Level 9.8 MG/DL (8.5-10.1) Total Bilirubin 0.3 MG/DL (0.2-1.0) Aspartate Amino Transferase (AST) 28 U/L (15-37) Alanine Aminotransferase (ALT) 89 U/L (12-78) H Alkaline Phosphatase 96 U/L (46-116) Total Protein 8.9 G/DL (6.4-8.2) H Albumin 4.0 G/DL (3.4-5.0) Globulin 4.9 g/dL Albumin/Globulin Ratio 0.8 (1.0-2.7) L Lipase 400 U/L (73-393) H Urine Opiates Screen Negative (NEGATIVE) Urine Barbiturates Screen Negative (NEGATIVE) Phencyclidine (PCP) Screen Negative (NEGATIVE) Urine Amphetamines Screen Positive (NEGATIVE) H Urine Benzodiazepines Screen Negative (NEGATIVE) Urine Cocaine Screen Negative (NEGATIVE) Urine Marijuana (THC) Screen Negative (NEGATIVE) (Jarrell Tomas MD) Last Vital Signs Date Time Temp Pulse Resp B/P (MAP) Pulse Ox O2 Delivery O2 Flow Rate FiO2 05/25/18 19:49 115 28 127/89 97 Room Air (Conchita Man DO) Last Vital Signs Date Time Temp Pulse Resp B/P (MAP) Pulse Ox O2 Delivery O2 Flow Rate FiO2 05/26/18 03:59 98.4 96 16 119/67 98 Room Air Status: improved (Jarrell Tomas MD) Disposition: HOME, SELF-CARE Condition: Improved Scripts Ondansetron Odt* (ZOFRAN ODT*) 4 Mg Tab.rapdis 4 MG BC EVERY 8 HOURS, #6 TAB 0 Refills Prov: Jarrell Tomas MD 05/26/18 Loperamide HCl (Loperamide) 2 Mg Capsule 2 MG ORAL Q6HR PRN for Diarrhea, #6 CAP 0 Refills Prov: Jarrell Tomas MD 05/26/18 Conchita Man DO May 25, 2018 20:58 Jarrell Tomas MD May 26, 2018 03:45
[2018-05-25 21:47] LABS: BASOPHILS % (AUTO) 1.7 % (0.0-2.0); EOSINOPHILS % (AUTO) 9.7 % (0.0-3.0); HEMATOCRIT 55.6 % (42.0-52.0); HEMOGLOBIN 17.7 G/DL (14.2-18.0); LYMPHOCYTES % (AUTO) 26.3 % (20.0-45.0); MEAN CORPUSCULAR VOLUME 87 FL (80-99); MONOCYTES % (AUTO) 14.1 % (1.0-10.0); NEUTROPHILS % (AUTO) 48.3 % (45.0-75.0); PLATELET COUNT 321 K/UL (150-450); RED BLOOD COUNT 6.41 M/UL (4.70-6.10); RED CELL DISTRIBUTION WIDTH 14.3 % (11.6-14.8)
[2018-05-25 21:55] LABS: ANION GAP 12 mmol/L (5-15); BLOOD UREA NITROGEN 35 mg/dL (7-18); CALCIUM 9.8 MG/DL (8.5-10.1); CARBON DIOXIDE 21 MMOL/L (21-32); CHLORIDE 98 MMOL/L (98-107); CREATININE 1.2 MG/DL (0.55-1.30); POTASSIUM 4.1 MMOL/L (3.5-5.1); SODIUM 131 MMOL/L (136-145)
[2018-05-25 22:00] LABS: ALANINE AMINOTRANSFERASE 89 U/L (12-78); ALBUMIN/GLOBULIN RATIO 0.8 (1.0-2.7); ALKALINE PHOSPHATASE 96 U/L (46-116); ASPARTATE AMINO TRANSFERASE 28 U/L (15-37); BILIRUBIN,TOTAL 0.3 MG/DL (0.2-1.0)
[2018-05-25 23:26] VITALS: BP 129/89
[2018-05-26 01:00] VITALS: BP 109/69
[2018-05-26 03:00] VITALS: BP 116/87
--- NOTE | 2018-05-26 03:19 | NUR ---
HAND-OFF: Report given to RN Edson and endorsed care. Pt vss, resp even and unlabored on RA, airway intact.
[2018-05-26] MEDS ORDERED: ONDANSETRON ODT4 MG BC (03:49)
[2018-05-26] MEDS ORDERED: IMODIUM2 MG ORAL (03:49)
[2018-05-26 03:59] VITALS: BP 119/67
--- NOTE | 2018-05-26 03:59 | NUR ---
Ed Nurse Note: pt is cleared to be DC per ERMD, pt discharge and aftercare instruction provided w/ prescription, pt education done via discussion and handout, pt advised to follow up with pcp or return to ED if sx worsen or new sx develop, pt verbalized understanding and agrees with plan, pt vss, ambulatory w/ steady gait, all belongiongs left w/ pt, wristband removed. iv d/c and dressing applied.
== END 2018-05-26 04:00 | disposition home or self-care (01) ==
LOC: EMR 20:00
DX: R11.2 Nausea with vomiting, unspecified (principal); F15.10 Other stimulant abuse, uncomplicated; L30.9 Dermatitis, unspecified
CPT/HCPCS: 36415; 80053; 80307; 83690; 85025; 96361; 96374; 96375; 99284; J1200; J2405

== ENCOUNTER 2020-05-24 14:52 | Emergency (ER) | payer MEDICAID ==
[~2020-05-24] VITALS: Ht 190.5 cm; Wt 97.1 kg
[~2020-05-24 14:52] MED LIST changes: +IMODIUM2 MG ORAL; +ONDANSETRON ODT4 MG BC
[2020-05-24 15:12] VITALS: BP 154/104
[2020-05-24] MEDS ORDERED: BENADRYL CRE1 APPLIC TOPIC (15:35)
[2020-05-24] MEDS ORDERED: CEPHALEXIN500 MG ORAL (15:35)
[2020-05-24] MEDS ORDERED: PREDNISONE20 MG ORAL (15:35)
--- NOTE | 2020-05-24 15:41 | Emergency Room Report ---
History of Present Illness General Chief Complaint: General Complaint Source: Patient Present Illness HPI Disclaimer: Please note that this report is being documented using DRAGON technology. This can lead to erroneous entry secondary to incorrect interpretation by the dictating instrument. HPI: 55-year-old male history of eczema presents for evaluation of rash. Patient reports scaly itchy rashes over the lower and upper extremities as well as a painful bump over the back of the scalp. He has been scratching it for the past week. He cannot recall if there was purulent drainage or bleeding from that pustule on the back of the head. Denies fever or chills. Denies mucosal lesions. Denies skin breakdown or bleeding. Has not seen a crude tester in several years. States he does have a PMD and will ask for referral to crude tester. Want something for itching. 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 EOMI. Resp: Normal work of breathing. Skin: Intact. Multiple large patches over the back of the knees extending around and over the flexor surfaces of the upper extremities over the forearms. Multiple excoriations from picking behavior. There is a 1 cm pustule in the back of the scalp over the occiput. It was unroofed with surrounding edema and erythema. No active drainage or bleeding. No fluctuance. MSK: Normal tone and bulk. Moving all extremities. No obvious deformity. Neuro: Awake and alert. Mentating appropriately. Medical Decision Making Diagnostic Impression: Primary Impression: Cellulitis Additional Impression: Eczema ER Course 55-year-old male presents for evaluation of rash. Most consistent with eczema over the extremities which will prescribe Benadryl and prednisone which he states he has had in the past and help. He should follow-up with dermatology regularly and I instructed him to follow-up with his PMD for referral as soon as possible. Regarding the small pustule of the back of the head. Appears that has been unroofed and I feel no fluctuance. There are some with surrounding edema and erythema consistent with an early cellulitis. Will treat with Keflex. Stable for outpatient follow-up. Instructed to return with new or worsening symptoms. Last Vital Signs Date Time Temp Pulse Resp B/P (MAP) Pulse Ox O2 Delivery O2 Flow Rate FiO2 05/24/20 15:30 Room Air 05/24/20 15:12 90 18 154/104 (121) 95 Disposition: HOME, SELF-CARE Condition: Stable Scripts Diphenhydramine HCl/Zinc Acet (Benadryl Itch Stopping Crm) 28.3 Gm Cream..g. 1 APPLIC TOPIC BID, #1 UNIT Prov: Tello Markham MD 05/24/20 Cephalexin* (KEFLEX*) 500 Mg Capsule 500 MG ORAL EVERY 6 HOURS for 7 Days, #28 CAP Prov: Tello Markham MD 05/24/20 Prednisone* (PREDNISONE*) 20 Mg Tablet 40 MG ORAL DAILY, #10 TAB Prov: Tello Markham MD 05/24/20 Patient Instructions: Pruritus Additional Instructions: Follow-up with crude tester through your primary care doctor as soon as you can. Take the medications as prescribed. Return to the emergency department new or worsening symptoms. Tello Markham MD May 24, 2020 15:41
== END 2020-05-24 16:00 | disposition home or self-care (01) ==
LOC: EMR 15:38
DX: L03.90 Cellulitis, unspecified (principal); L30.9 Dermatitis, unspecified; B20 Human immunodeficiency virus [HIV] disease
CPT/HCPCS: 99282